=== PATIENT | female | born 1975 | race African-American/Black ===

== ENCOUNTER → 2020-10-30 | Outpatient (CLI) | payer MEDICARE ==
[2020-11-02 13:31] LABS: Candida species (DNA Probe) Negative (NEGATIVE); G. vaginalis (DNA Probe) Positive (NEGATIVE); T. vaginalis (DNA Probe) Negative (NEGATIVE)
== END | disposition home or self-care (01) ==
LOC: LAB 09:00 → LAB SHORT 09:00
PROVIDERS: Family Medicine
DX: Z12.4 Encounter for screening for malignant neoplasm of cervix (principal)
CPT/HCPCS: 87480; 87510; 87660; G0145

== ENCOUNTER → 2021-03-24 | Outpatient (CLI) | payer MEDICARE | LOC: LAB SHORT 13:18 → LAB 13:18 | DX: J15.9 Unspecified bacterial pneumonia (principal) | CPT/HCPCS: 87070; 87205 ==

== ENCOUNTER → 2023-10-04 | Outpatient (CLI) | payer MEDICARE ==
[2023-10-04 20:19] LABS: Bacterial Vaginosis PCR Negative (NEGATIVE); Candida Group, PCR NOT DETECTED (NOT DETECT)
[2023-10-04 20:22] LABS: Candida glabrata-krusei, PCR DETECTED (NOT DETECT)
[2023-10-07 09:30] LABS: APTIMA MEDIA TYPE Urine; C. TRACHOMATIS BY TMA Negative (Negative); N. GONORRHOEAE BY TMA Negative (Negative); SPECIMEN SOURCE Urine
== END ==
LOC: LAB 09:15 → LAB SHORT 09:15
PROVIDERS: Physician Assistant
DX: N76.0 Acute vaginitis (principal)
CPT/HCPCS: 87481; 87491; 87591; 87661; 87801